=== PATIENT | female | born 1960 | race African-American/Black ===

== ENCOUNTER 2020-03-31 15:38 | Emergency (ER) | payer OTHER ==
[~2020-03-31] VITALS: Ht 167.6 cm; Wt 95.3 kg
[2020-03-31] MEDS: MAG HYDROX/AL HYDROX/SIMETH 30 ML, DICYCLOMINE HCL 20 MG, LIDOCAINE VISCOUS 2% 15ML (PO... PO ONE ×3 (15:45)
[2020-03-31 16:00] VITALS: BP_SYST 148
[2020-03-31 17:00] VITALS: BP_SYST 148
== END 2020-03-31 17:00 | disposition home or self-care (01) ==
LOC: SED 15:38
DX: K29.70 Gastritis, unspecified, without bleeding (principal)
CPT/HCPCS: 99283; J2001

== ENCOUNTER 2020-05-19 10:38 | Inpatient (IN) | payer OTHER, SELFPAY ==
[~2020-05-19] VITALS: Ht 172.7 cm; Wt 94.3 kg
[2020-05-19 10:55] VITALS: BP_SYST 111
[2020-05-19] MEDS ORDERED: AMPICILLIN SODIUM/SULBACTAM NA 3 GM VIAL ONE (11:44)
[2020-05-19] MEDS ORDERED: OXYCODONE/ACETAMINOPHEN *10*mg/325 mg TABLET PO ONE (11:45)
[2020-05-19] MEDS ORDERED: AMPICILLIN SODIUM/SULBACTAM NA 3 GM in NS 100 ML IV ONE (11:45)
[2020-05-19] MEDS ORDERED: NS 500 ML IV ONE (11:45)
[2020-05-19] MEDS ORDERED: LINEZOLID 300 ML IV ONE (11:45)
[2020-05-19] MEDS ORDERED: NS 500 ML IV SCH (11:45)
[2020-05-19 12:24] LABS: BASOPHILS # (AUTO) 0.1 K/uL (0.0-0.2); BASOPHILS % (AUTO) 0.3 % (0.0-2.0); HEMATOCRIT 38.7 % (36-48); HEMOGLOBIN 12.9 g/dL (12.0-16.0); LYMPHOCYTES # (AUTO) 1.6 K/uL (1.0-5.5); LYMPHOCYTES % (AUTO) 7.3 % (20.5-51.5); MEAN CORPUSCULAR HEMOGLOBIN 29 pg (27-31); MEAN CORPUSCULAR HGB CONC 33 % (32-36); MEAN CORPUSCULAR VOLUME 87 fL (79.0-98.0); MONOCYTES # (AUTO) 1.3 K/uL (0.0-1.0); MONOCYTES % (AUTO) 5.7 % (1.7-9.3); NEUTROPHILS # (AUTO) 19.2 K/uL (1.8-7.7); NEUTROPHILS % (AUTO) 86.7 % (40.0-70.0); PLATELET COUNT (AUTO) 272 K/uL (130-430); RED BLOOD CELL COUNT(AUTO) 4.44 MIL/uL (4.2-6.2); RED CELL DISTRIBUTION WIDTH 13.4 % (9.0-15.0); WHITE BLOOD COUNT (AUTO) 22.2 K/uL (4.8-10.8)
[2020-05-19 12:34] LABS: CALCIUM 9.3 mg/dL (8.4-11.0); CREATININE 2.21 mg/dL (0.55-1.30); POTASSIUM 3.6 mmol/L (3.5-5.1)
[2020-05-19 12:40] LABS: ALBUMIN 3.1 g/dL (3.4-4.8); TOTAL BILIRUBIN 1.3 mg/dL (0.0-1.0)
[2020-05-19 12:44] LABS: PROTHROMBIN TIME 10.6 SECS (9.5-12.5)
[2020-05-19 13:00] LABS: BILIRUBIN,URINE 1+ (NEGATIVE); BLOOD, URINE 2+ (NEGATIVE); COLOR,URINE YELLOW (YELLOW); GLUCOSE,URINE NEGATIVE (NEGATIVE); KETONES,URINE TRACE (NEGATIVE); LEUKOCYTE ESTERASE ,URINE NEGATIVE (NEGATIVE); NITRITE, URINE POSITIVE (NEGATIVE); PROTEIN URINE 1+ (NEGATIVE)
[2020-05-19 13:12] LABS: CLARITY/URINE CLOUDY (CLEAR)
[2020-05-19 13:21] LABS: WBC,URINE NONE SEEN /HPF (0-3)
[2020-05-19 13:22] LABS: BACTERIA,URINE MODERATE /HPF (None Seen)
[2020-05-19] MEDS ORDERED: LORazepam 2 MG/ML VIAL IVP ONE (14:00)
[2020-05-19] MEDS ORDERED: LOSA100T3 PO (14:36)
[2020-05-19] MEDS ORDERED: SPIR25TA6 PO (14:36)
[2020-05-19] MEDS ORDERED: LEVO137T2 PO (14:36)
[2020-05-19] MEDS ORDERED: PROCHLORPERAZINE EDISYLATE 10 MG/2 ML VIAL ONE (15:44)
[2020-05-19] MEDS ORDERED: PROCHLORPERAZINE EDISYLATE 10 MG/2 ML VIAL IVP ONE (15:45)
[2020-05-19] MEDS ORDERED: MORPHINE 4 MG INJ. 4 MG/ML VIAL IVP ONE (16:15)
[2020-05-19] MEDS ORDERED: NS 1000 ML IV.SOLN IV ONE (17:30)
[2020-05-19] MEDS ORDERED: IBUPROFEN 600 MG TABLET PO ONE (17:30)
[2020-05-19 18:10] VITALS: BP_SYST 98
[2020-05-19] MEDS ORDERED: PIPERACILLIN/TAZO 3.375/DEX-IS 50 ML IV ONE (20:00)
[2020-05-19] MEDS ORDERED: MORPHINE 2 MG/ML INJ. SYRINGE IVP PRN (20:15)
[2020-05-19 20:41] VITALS: BP_SYST 101
[2020-05-19 20:43] VITALS: BP_SYST 101
[2020-05-19] MEDS: NACL 0.9% 1,000 ML IV SCH (20:54)
[2020-05-20] MEDS: PIPERACILLIN/TAZO 3.375/DEX-IS 50 ML IV SCH ×4 (01:11→20:40)
[2020-05-20 01:32] VITALS: BP_SYST 96
[2020-05-20] MEDS ORDERED: CLINDAMYCIN 600 mg/50mL D5W 50 ML IV ONE (05:39)
[2020-05-20] MEDS: NACL 0.9% 1,000 ML IV SCH ×2 (05:50→16:09)
[2020-05-20] MEDS: CLINDAMYCIN 600 mg/50mL D5W 50 ML IV SCH ×4 (05:50→23:20)
[2020-05-20] MEDS: LEVOTHYROXINE SODIUM 0.137 MG TABLET PO SCH (06:01)
[2020-05-20 06:22] LABS: BASOPHILS % (AUTO) 0.1 % (0.0-2.0); EOSINOPHILS % (AUTO) 0.1 % (0.0-4.0); HEMATOCRIT 32.3 % (36-48); HEMOGLOBIN 10.6 g/dL (12.0-16.0); LYMPHOCYTES # (AUTO) 1.9 K/uL (1.0-5.5); LYMPHOCYTES % (AUTO) 9.3 % (20.5-51.5); MEAN CORPUSCULAR HEMOGLOBIN 29 pg (27-31); MEAN CORPUSCULAR HGB CONC 33 % (32-36); MEAN CORPUSCULAR VOLUME 88 fL (79.0-98.0); MONOCYTES # (AUTO) 1.5 K/uL (0.0-1.0); MONOCYTES % (AUTO) 7.2 % (1.7-9.3); NEUTROPHILS # (AUTO) 16.8 K/uL (1.8-7.7); NEUTROPHILS % (AUTO) 83.3 % (40.0-70.0); PLATELET COUNT (AUTO) 247 K/uL (130-430); RED BLOOD CELL COUNT(AUTO) 3.69 MIL/uL (4.2-6.2); RED CELL DISTRIBUTION WIDTH 13.7 % (9.0-15.0); WHITE BLOOD COUNT (AUTO) 20.2 K/uL (4.8-10.8)
[2020-05-20 06:32] LABS: ALBUMIN 2.2 g/dL (3.4-4.8); CALCIUM 8.2 mg/dL (8.4-11.0); CREATININE 2.31 mg/dL (0.55-1.30); POTASSIUM 3.5 mmol/L (3.5-5.1); TOTAL BILIRUBIN 1.3 mg/dL (0.0-1.0)
[2020-05-20 07:37] VITALS: BP_SYST 89
[2020-05-20] MEDS ORDERED: ONDANSETRON HCL 4 MG/2 ML VIAL IVP PRN (11:15)
[2020-05-20 11:22] VITALS: BP_SYST 100
[2020-05-20 15:23] VITALS: BP_SYST 99
[2020-05-20] MEDS: HYDROcodone/ACETAMIN 5-325 MG TAB (NORCO/ VICODIN) PO PRN ×2 (16:09→22:36)
[2020-05-20] MEDS ORDERED: NAPROXEN 250 MG TABLET PO SCH (17:00)
[2020-05-20 20:00] VITALS: BP_SYST 108
[2020-05-21 00:54] VITALS: BP_SYST 94
[2020-05-21] MEDS: PIPERACILLIN/TAZO 3.375/DEX-IS 50 ML IV SCH ×4 (00:59→20:59)
[2020-05-21] MEDS: NACL 0.9% 1,000 ML IV SCH ×3 (00:59→21:02)
[2020-05-21] MEDS: CLINDAMYCIN 600 mg/50mL D5W 50 ML IV SCH ×4 (05:59→23:38)
[2020-05-21] MEDS: LEVOTHYROXINE SODIUM 0.137 MG TABLET PO SCH (06:00)
[2020-05-21 07:15] LABS: BASOPHILS % (AUTO) 0.2 % (0.0-2.0); EOSINOPHILS # (AUTO) 0.1 K/uL (0.0-0.4); EOSINOPHILS % (AUTO) 0.8 % (0.0-4.0); HEMATOCRIT 30.8 % (36-48); HEMOGLOBIN 10.2 g/dL (12.0-16.0); LYMPHOCYTES # (AUTO) 2.1 K/uL (1.0-5.5); LYMPHOCYTES % (AUTO) 14.2 % (20.5-51.5); MEAN CORPUSCULAR HEMOGLOBIN 29 pg (27-31); MEAN CORPUSCULAR HGB CONC 33 % (32-36); MEAN CORPUSCULAR VOLUME 87 fL (79.0-98.0); MONOCYTES # (AUTO) 0.7 K/uL (0.0-1.0); MONOCYTES % (AUTO) 4.9 % (1.7-9.3); NEUTROPHILS # (AUTO) 11.8 K/uL (1.8-7.7); NEUTROPHILS % (AUTO) 79.9 % (40.0-70.0); PLATELET COUNT (AUTO) 255 K/uL (130-430); RED BLOOD CELL COUNT(AUTO) 3.56 MIL/uL (4.2-6.2); RED CELL DISTRIBUTION WIDTH 13.8 % (9.0-15.0); WHITE BLOOD COUNT (AUTO) 14.8 K/uL (4.8-10.8)
[2020-05-21 07:47] LABS: CALCIUM 8.1 mg/dL (8.4-11.0); CREATININE 1.21 mg/dL (0.55-1.30); POTASSIUM 3.2 mmol/L (3.5-5.1)
[2020-05-21 08:00] VITALS: BP_SYST 124
[2020-05-21 12:40] VITALS: BP_SYST 114
[2020-05-21 15:23] VITALS: BP_SYST 128
[2020-05-21 16:00] VITALS: BP_SYST 128
[2020-05-21 20:00] VITALS: BP_SYST 133
[2020-05-21] MEDS ORDERED: KETOROLAC TROMETHAMINE 15 MG VIAL IVP PRN (21:30)
[2020-05-22 00:41] VITALS: BP_SYST 95
[2020-05-22] MEDS: PIPERACILLIN/TAZO 3.375/DEX-IS 50 ML IV SCH ×2 (01:34→08:02)
[2020-05-22] MEDS: LEVOTHYROXINE SODIUM 0.137 MG TABLET PO SCH (06:08)
[2020-05-22 08:00] VITALS: BP_SYST 127
[2020-05-22] MEDS ORDERED: LINEZOLID 300 ML IV SCH (09:00)
[2020-05-22] MEDS ORDERED: METOCLOPRAMIDE HCL 10 MG/2 ML VIAL ONE (09:59)
[2020-05-22 12:07] LABS: BASOPHILS % (AUTO) 0.2 % (0.0-2.0); EOSINOPHILS # (AUTO) 0.2 K/uL (0.0-0.4); EOSINOPHILS % (AUTO) 1.5 % (0.0-4.0); HEMATOCRIT 33.5 % (36-48); HEMOGLOBIN 11.2 g/dL (12.0-16.0); LYMPHOCYTES # (AUTO) 2.2 K/uL (1.0-5.5); LYMPHOCYTES % (AUTO) 14.7 % (20.5-51.5); MEAN CORPUSCULAR HEMOGLOBIN 29 pg (27-31); MEAN CORPUSCULAR HGB CONC 34 % (32-36); MEAN CORPUSCULAR VOLUME 86 fL (79.0-98.0); MONOCYTES # (AUTO) 0.6 K/uL (0.0-1.0); MONOCYTES % (AUTO) 4.1 % (1.7-9.3); NEUTROPHILS # (AUTO) 11.7 K/uL (1.8-7.7); NEUTROPHILS % (AUTO) 79.5 % (40.0-70.0); PLATELET COUNT (AUTO) 368 K/uL (130-430); RED BLOOD CELL COUNT(AUTO) 3.89 MIL/uL (4.2-6.2); RED CELL DISTRIBUTION WIDTH 13.9 % (9.0-15.0); WHITE BLOOD COUNT (AUTO) 14.7 K/uL (4.8-10.8)
[2020-05-22 12:18] LABS: CALCIUM 8.9 mg/dL (8.4-11.0); CREATININE 1.05 mg/dL (0.55-1.30); POTASSIUM 3.4 mmol/L (3.5-5.1)
[2020-05-22 12:24] LABS: ALBUMIN 2.4 g/dL (3.4-4.8); TOTAL BILIRUBIN 0.5 mg/dL (0.0-1.0)
[2020-05-22] MEDS ORDERED: METOCLOPRAMIDE HCL 10 MG/2 ML VIAL IVP PRN (12:45)
[2020-05-22] MEDS ORDERED: LEVO500T89 PO ×2 (13:49→14:06)
[2020-05-22 14:59] VITALS: BP_SYST 136
[2020-05-22] MEDS ORDERED: DAPTOmycin 500 MG in NS 50 ML IV SCH (15:00)
[2020-05-22 15:22] VITALS: BP_SYST 136
== END 2020-05-22 14:50 | disposition home health service (06) | DRG 871 ==
LOC: SED 10:38 → SMU 17:07
PROVIDERS: ADMIT Internal Medicine Hospice and Palliative Medicine; ATTEND Internal Medicine Hospice and Palliative Medicine
DX: A41.9 Sepsis, unspecified organism (principal); N17.0 Acute kidney failure with tubular necrosis; L03.116 Cellulitis of left lower limb; M17.12 Unilateral primary osteoarthritis, left knee; I12.9 Hypertensive chronic kidney disease with stage 1 through stage 4 chronic kidney disease, or unspecified chronic kidney disease; Z20.822 Contact with and (suspected) exposure to COVID-19; N18.9 Chronic kidney disease, unspecified; E66.9 Obesity, unspecified; E89.0 Postprocedural hypothyroidism; Z85.850 Personal history of malignant neoplasm of thyroid; Z88.1 Allergy status to other antibiotic agents; Z91.040 Latex allergy status; Z79.899 Other long term (current) drug therapy; Z68.31 Body mass index [BMI] 31.0-31.9, adult
CPT/HCPCS: 36415; 71045; 73560-TC; 73700-TC; 76376; 76770; 80053; 81000-TC; 83605; 84484; 85025; 85610-TC; 85651-TC; 85730-TC; 86140; 87040-TC; 87086; 96361; 96365; 96366; 96367; 96375; C1751; J0295; J0780; J0878; J2020; J2270; J2405; J2543; J2765; J3490; J7030

== ENCOUNTER 2021-06-15 08:10 | Emergency (ER) | payer OTHER ==
[~2021-06-15] VITALS: Ht 172.7 cm; Wt 104.3 kg
[~2021-06-15 08:10] MED LIST: LEVO137T2 PO; LEVO500T90 PO; LOSA100T3 PO
--- NOTE | 2021-06-15 08:20 | NUR ---
pt placed in room 6. bed lowered, locked and locked placed in gown. rails up
[2021-06-15 08:21] VITALS: BP_SYST 178
--- NOTE | 2021-06-15 08:22 | NUR ---
PT PRESENTED TO THE ER WITH COMPLAINT OF LEFT SHOULD, WRIST AND ELBOW PAIN. PT DROVE HERSELF TO THE ER FROM HOME. SHE FEEL YESTERDAY OUTSIDE HER HOUSE CARRYING GROCERIES AND LANDED ON HER LEFT SIDE. PT HAS 10/10 PAIN. PT IN BED RESTING WITH BED LOWERED AND LOCKED AND RAILS UP. PT DENIES SOB OR CHEST PAIN
--- NOTE | 2021-06-15 08:26 | NUR ---
Dr Heath at pt bedside
[2021-06-15] MEDS ORDERED: ACETAMINOPHEN 500 MG TABLET PO ONE (08:45)
--- NOTE | 2021-06-15 09:30 | NUR ---
PT SITTING UP IN [place] WITH HEADPHONES ON, NO DISTRESS NOTED
[2021-06-15] MEDS ORDERED: ACET325T PO (10:22)
[2021-06-15 10:52] VITALS: BP_SYST 178
--- NOTE | 2021-06-15 10:56 | NUR ---
Patient given written and verbal discharge instructions and verbalizes understanding. ER MD discussed with patient the results and treatment provided. Patient in stable condition. ID arm band removed. Rx of TYLENOL given. Patient educated on pain management and to follow up with PMD. Pain Scale 0/10. Opportunity for questions provided and answered. Medication side effect fact sheet provided.
== END 2021-06-15 10:52 | disposition home or self-care (01) ==
LOC: SED 08:10
DX: S40.022A Contusion of left upper arm, initial encounter (principal); I10 Essential (primary) hypertension; M19.90 Unspecified osteoarthritis, unspecified site; Z91.040 Latex allergy status; W22.8XXA Striking against or struck by other objects, initial encounter; Z88.1 Allergy status to other antibiotic agents; Y93.89 Activity, other specified; Y92.89 Other specified places as the place of occurrence of the external cause; Y99.8 Other external cause status
CPT/HCPCS: 73030; 99284